=== PATIENT | male | born 1985 | race Caucasian/White ===

== ENCOUNTER 2016-10-20 12:34 | Emergency (ER) | payer OTHER ==
[~2016-10-20] VITALS: Ht 177.8 cm; Wt 75.2 kg
[2016-10-20 12:37] VITALS: BP 109/75; PULSE 95; RESP 16; TEMP 98.5; O2SAT 96
[2016-10-20] MEDS ORDERED: LIDOCAINE HCL 1% PF 30 ML VIAL ONE (12:50)
--- NOTE | 2016-10-20 12:53 | PD ---
HPI Chief Complaint: Oral / Dental Pain or Problem Time Seen by Provider: 12:51 Travel History International Travel<30 days: No Contact w/Intl Traveler<30days: No Traveled to known affect area: No History of Present Illness HPI 31-year-old male presents to the emergency room for evaluation of 2 separate complaints. Patient states 2 days ago he developed right lateral abdominal pain. Patient states it feels like sharp pain without radiation. The area of skin overlying the abdominal pain feels numb, "like when your hands fall asleep. " He 2 days ago he also woke up with right-sided facial swelling. He denies significant pain in the face stating that the pain in his abdomen is overshadowing it. Patient had fever of 102.5 yesterday which went away with Tylenol and Motrin. He denies nausea, vomiting, flank pain, diarrhea, dysuria, hematuria, urgency, frequency, back pain, loss of bowel or bladder control, or lower extremity paresthesias. [facility] Social History Tobacco Use: Yes Allergies-Medications (Allergen,Severity, Reaction): Coded Allergies: No Known Allergies (Unverified , 10/20/16) Review of Systems Except as stated in HPI: all other systems reviewed are Neg Physical Exam Narrative GENERAL: Well-developed, well-nourished male in no acute distress. Afebrile. Ambulatory. SKIN: Focused skin assessment warm/dry. No rash. No erythema or ecchymosis. HEAD: Atraumatic. Normocephalic. EYES: Pupils equal and round. No scleral icterus. No injection or drainage. DENTAL: Mild decay throughout. No chipped teeth. No malocclusion. There is an obvious, fluctuant, nondraining abscess over tooth #3. There is associated right-sided facial swelling. No submental, submandibular, or buccal induration. NECK: Trachea midline. No JVD. CARDIOVASCULAR: Regular rate and rhythm. No murmur appreciated. RESPIRATORY: No accessory muscle use. Clear to auscultation. Breath sounds equal bilaterally. GASTROINTESTINAL: Abdomen soft, nondistended. Hepatic and splenic margins not palpable. No CVA tenderness. No pain at McBurney's point. There is mild to moderate tenderness to palpation of the right lateral abdomen. No rebound tenderness. No peritoneal signs. NEUROLOGICAL: Awake and alert. No obvious cranial nerve deficits. Motor grossly within normal limits. Normal speech. Data Data Last Documented VS Vital Signs Date Time Temp Pulse Resp B/P Pulse Ox O2 Delivery O2 Flow Rate FiO2 10/20/16 12:37 98.5 95 16 109/75 96 Orders Lidocaine Pf 1% Inj (Xylocaine-Mpf 1% In (10/20/16 12:50) Complete Blood Count With Diff (10/20/16 12:57) Comprehensive Metabolic Panel (10/20/16 12:57) Ct Abd/Pel W Iv Contrast(Rout) (10/20/16 12:57) Iv Access Insert/Monitor (10/20/16 12:57) Sodium Chloride 0.9% Flush (Ns Flush) (10/20/16 13:00) Clindamycin Inj (Cleocin Inj) (10/20/16 13:00) Iohexol 350 Inj (Omnipaque 350 Inj) (10/20/16 13:26) Labs Laboratory Tests Test 10/20/16 13:12 White Blood Count 4.7 TH/MM3 Red Blood Count 4.56 MIL/MM3 Hemoglobin 13.7 GM/DL Hematocrit 40.1 % Mean Corpuscular Volume 88.0 FL Mean Corpuscular Hemoglobin 30.0 PG Mean Corpuscular Hemoglobin 34.1 % Concent Red Cell Distribution Width 12.5 % Platelet Count 197 TH/MM3 Mean Platelet Volume 8.0 FL Neutrophils (%) (Auto) 69.5 % Lymphocytes (%) (Auto) 18.8 % Monocytes (%) (Auto) 8.3 % Eosinophils (%) (Auto) 2.4 % Basophils (%) (Auto) 1.0 % Neutrophils # (Auto) 3.3 TH/MM3 Lymphocytes # (Auto) 0.9 TH/MM3 Monocytes # (Auto) 0.4 TH/MM3 Eosinophils # (Auto) 0.1 TH/MM3 Basophils # (Auto) 0.0 TH/MM3 CBC Comment DIFF FINAL Differential Comment Sodium Level 142 MEQ/L Potassium Level 3.9 MEQ/L Chloride Level 107 MEQ/L Carbon Dioxide Level 29.6 MEQ/L Anion Gap 5 MEQ/L Blood Urea Nitrogen 13 MG/DL Creatinine 0.85 MG/DL Estimat Glomerular Filtration 105 ML/MIN Rate Random Glucose 114 MG/DL Calcium Level 8.4 MG/DL Total Bilirubin 0.3 MG/DL Aspartate Amino Transf 51 U/L (AST/SGOT) Alanine Aminotransferase 62 U/L (ALT/SGPT) Alkaline Phosphatase 81 U/L Total Protein 7.1 GM/DL Albumin 3.3 GM/DL MDM Medical Decision Making Medical Screen Exam Complete: Yes Emergency Medical Condition: Yes Medical Record Reviewed: Yes Differential Diagnosis Dental abscess, shingles, abdominal pain, kidney stone Narrative Course 31-year-old male presents to the emergency room for 2 separate complaints. First complaint is dental swelling that started 2 days ago. Patient denies significant pain. Denies drainage. Reports associated 102.5 fever. He is afebrile well-appearing in the emergency room. Physical exam reveals an abscess over tooth #3 with associated buccal edema. Abscess was drained, see procedure note for details. Patient was given a dose of IV clindamycin the emergency room and will be discharged with prescription for the same. Told to follow up with a dentist. Second complaint is right lateral abdominal pain for the past 2 days with associated paresthesias. He denies trauma or injury. Denies back pain or lower extremity paresthesias. Physical exam reveals moderate tenderness to palpation of the right lateral abdomen without rebound tenderness. Patient denies nausea, vomiting, diarrhea. CBC and CMP are unremarkable. CT the abdomen shows diffuse stool throughout but no evidence of acute process. Patient was told to follow-up with a primary care physician or return for worsening symptoms or a rash. He understands and agrees to plan. Procedures Procedure Narrative INCISION AND DRAINAGE OF ABSCESS: A wheal of 1% lidocaine with a total number 1 mL was used to anesthetize the gingiva properly. A 27-gauge needle was used to draw purulent drainage from the abscess. Diagnosis Primary Impression: Dental abscess Additional Impression: Abdominal pain Qualified Code: R10.9 - Abdominal pain, unspecified location Referrals: Dentist Primary Care Physician Patient Instructions: Abdominal Pain (ED), Dental Abscess (ED), General Instructions Additional Instructions: Rest and drink plenty of fluids. Clindamycin as directed, until gone. If you develop a rash, return to the emergency room for antiviral medication. Follow-up with a dentist. Return to the emergency room for worsening symptoms. Med/Other Pt SpecificInfo: Prescription(s) given Disposition: 01 DISCHARGE HOME Condition: Stable Kiley Gonzales Oct 20, 2016 12:53
[2016-10-20] MEDS ORDERED: SODIUM CHLORIDE 0.9% FLUSH 10 ML FLUSH IV FLUSH PRN (13:00)
[2016-10-20] MEDS ORDERED: CLINDAMYCIN INJ 900 MG in SODIUM CHLORIDE 0.9% INJ 100 ML IV ONE (13:00)
[2016-10-20 13:20] LABS: AUTOMATED NEUTROPHIL # 3.3 TH/MM3 (1.8-7.7); EOSINOPHIL # 0.1 TH/MM3 (0-0.4); EOSINOPHIL % 2.4 % (0.0-4.0); HEMATOCRIT 40.1 % (39.0-51.0); HEMO FLAGS DIFF FINAL; LYMPH % 18.8 % (9.0-44.0); LYMPHOCYTE # 0.9 TH/MM3 (1.0-4.8); MEAN CORPUSCULAR HGB CONC 34.1 % (32.0-36.0); MONO % 8.3 % (0.0-8.0); NEUT % 69.5 % (16.0-70.0); PLATELET COUNT 197 TH/MM3 (150-450); RED BLOOD COUNT 4.56 MIL/MM3 (4.50-5.90); RED CELL DISTRIBUTION WIDTH 12.5 % (11.6-17.2); WHITE BLOOD COUNT 4.7 TH/MM3 (4.0-11.0)
[2016-10-20 13:24] LABS: CHLORIDE 107 MEQ/L (98-107); POTASSIUM 3.9 MEQ/L (3.5-5.1); SODIUM (NA) 142 MEQ/L (136-145)
[2016-10-20] MEDS ORDERED: IOHEXOL 350 MG/ML 10 ML VIAL (for RAD DIAG) IV ONE (13:26)
[2016-10-20 13:28] LABS: ANION GAP 5 MEQ/L (5-15); BICARBONATE 29.6 MEQ/L (21.0-32.0); BLOOD UREA NITROGEN 13 MG/DL (7-18)
[2016-10-20 13:31] LABS: ALT (GPT) 62 U/L (12-78); AST (GOT) 51 U/L (15-37); GLOMERULAR FILTRATION RATE 105 ML/MIN (>89)
[2016-10-20 13:33] LABS: TOTAL BILIRUBIN ADULT 0.3 MG/DL (0.2-1.0)
[2016-10-20 13:34] LABS: ALKALINE PHOSPHATASE 81 U/L (45-117)
--- NOTE | 2016-10-20 13:38 | RADRPT ---
EXAM DATE/TIME: 10/20/2016 13:14 [facility] COMPARISON: No previous studies available for comparison. INDICATIONS : Right abdominal pain x 2 days. IV CONTRAST: 85 cc Omnipaque 350 (iohexol) IV ORAL CONTRAST: No oral contrast ingested. RADIATION DOSE: 7.53 CTDIvol (mGy) MEDICAL HISTORY : None SURGICAL HISTORY : None. ENCOUNTER: Initial ACUITY: 1 day PAIN SCALE: 7/10 LOCATION: Right abdomen. TECHNIQUE: Volumetric scanning of the abdomen and pelvis was performed. Using automated exposure control and ad justment of the mA and/or kV according to patient size, radiation dose was kept as low as reasonably achievable to obtain optimal diagnostic quality images. DICOM format image data is available electro nically for review and comparison. FINDINGS: LOWER LUNGS: The visualized lower lungs are clear. LIVER: Homogeneous density without lesion. There is no dilation of the biliary tree. No calcified gallston es. SPLEEN: Normal size without lesion. PANCREAS: Within normal limits. KIDNEYS: Normal in size and shape. There is no mass, stone or hydronephrosis. ADRENAL GLANDS: Within normal limits. VASCULAR: There is no aortic aneurysm. BOWEL/MESENTERY: The stomach, small bowel, and colon demonstrate no acute abnormality. There is no free intraperitone al air or fluid. The appendix is unremarkable. No inflammatory changes are demonstrated. There is a d iffuse amount of stool throughout the entire colon. ABDOMINAL WALL: Within normal limits. RETROPERITONEUM: There is no lymphadenopathy. BLADDER: No wall thickening or mass. REPRODUCTIVE: Within normal limits. INGUINAL: There is no lymphadenopathy or hernia. MUSCULOSKELETAL: Within normal limits for patient age. CONCLUSION: Diffuse amount of stool throughout the entire colon. Otherwise, unremarkable exam for patient's age. Gibson Cabrera MD on October 20, 2016 at 13:33 Board Certified Radiologist. This report was verified electronically.
[2016-10-20] MEDS ORDERED: CLIN1CAP6 PO (14:01)
== END 2016-10-20 14:32 | disposition home or self-care (01) ==
LOC: PHEFT 12:34
DX: K04.7 Periapical abscess without sinus (principal); R10.9 Unspecified abdominal pain; R20.2 Paresthesia of skin; R50.9 Fever, unspecified; Z72.0 Tobacco use
CPT/HCPCS: 41800; 74177; 80053; 85025; 96365; 99285; Q9967